=== PATIENT | female | born 1975 | race Two or more races ===

== ENCOUNTER 2021-12-16 18:45 | Emergency (ER) | payer OTHER ==
[~2021-12-16] VITALS: Ht 157.5 cm; Wt 72.6 kg
--- NOTE | 2021-12-16 18:45 | NUR ---
PT BIBRA 876 FROM HOME C/O SOB X 1 MONTH. 100% ON RA. PT IS AAOX4, NOT IN RESPIRATORY DISTRESS, V/S STABLE, KEPT RESTED AND COMFORTABLE. WILL CONTINUE TO MONITOR.
[2021-12-16] MEDS ORDERED: ONDA4TAB5 PO (19:39)
[2021-12-16] MEDS ORDERED: AZIT500T2 PO (19:39)
--- NOTE | 2021-12-16 20:09 | NUR ---
Patient discharged to home in stable condition. Written and verbal after care instructions given. Patient verbalizes understanding of instruction.
[2021-12-16 20:10] VITALS: BP 124/66
== END 2021-12-16 20:10 | disposition home or self-care (01) ==
LOC: ER 18:57
DX: R06.02 Shortness of breath (principal); D64.9 Anemia, unspecified; Z86.2 Personal history of diseases of the blood and blood-forming organs and certain disorders involving the immune mechanism; Z60.2 Problems related to living alone